=== PATIENT | female | born 1950 | race Caucasian/White ===

== ENCOUNTER 2017-06-08 13:28 | Emergency (ER) | payer MEDICARE, BC ==
[2017-06-08 13:45] VITALS: BP 126/66
[2017-06-08] MEDS ORDERED: Sodium Chloride 0.9% 10 ML Syringe FLUSH PRN (14:16)
[2017-06-08] MEDS ORDERED: Ondansetron 4 MG/2 ML SDV IVPUSH ONE (14:17)
[2017-06-08] MEDS ORDERED: Sodium Chloride 0.9% 1,000 ML IV ONE (14:17)
--- NOTE | 2017-06-08 14:34 | EDM.PDOC ---
ED HPI GENERAL MEDICAL PROBLEM - General Chief Complaint: Respiratory Problem Stated Complaint: fever/cough Time Seen by Provider: 06/08/17 13:40 Source of Information: Reports: Patient, RN, RN Notes Reviewed History Limitations: Reports: No Limitations - History of Present Illness INITIAL COMMENTS - FREE TEXT/NARRATIVE: Patient presents to the ED at [facility] with a 2 day history of a fever and non-productive cough. Patient states her fevers have been up to 103 orally. She has no appetite. She has been trying to stay well hydrated with good PO fluid intake. No close family members or close contacts with similar symptoms. Patient has not tried any OTC cold medications for her symptoms. Patient denies any eye or ear pathology. No sore throat. No sinus complaints. 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: Other (see below) Other Treatments BRUSH CLEARER SURVEYING: ibuprofen chest Pain Score (Numeric/FACES): 3 - Related Data Allergies Allergy/AdvReac Type Severity Reaction Status Date / Time acetaminophen [From Vicodin] Allergy Nausea Verified 06/08/17 13:44 ciprofloxacin HCl Allergy Nausea Verified 06/08/17 13:44 [From Cipro HC] hydrocodone bitartrate Allergy Nausea Verified 06/08/17 13:44 [From Vicodin] hydrocortisone Allergy Nausea Verified 06/08/17 13:44 [From Cipro HC] Home Meds: Home Meds Levothyroxine [Synthroid] 88 mcg PO DAILY 09/23/16 [History] Oseltamivir [Tamiflu] 75 mg PO BID 5 Days #10 cap 06/08/17 [Rx] Past Medical History Endocrine/Metabolic History: Reports: Diabetes, Type II, Hypothyroidism Social & Family History - Family History Family Medical History: Noncontributory - Tobacco Use Smoking Status *Q: Never Smoker - Recreational Drug Use Recreational Drug Use: No Drug Use in Last 12 Months: No - Living Situation & Occupation Living situation: Reports: Single Occupation: Employed ED ROS GENERAL - Review of Systems Review Of Systems: See Below Constitutional: Reports: Fever, Chills, Decreased Appetite. Denies: Weakness HEENT: Denies: Ear Pain, Sinus Problem, Throat Pain Respiratory: Reports: Pleuritic Chest Pain, Cough. Denies: Shortness of Breath , Wheezing, Sputum Cardiovascular: Denies: Chest Pain, Palpitations GI/Abdominal: Reports: Nausea. Denies: Abdominal Pain, Vomiting Skin: Reports: No Symptoms Neurological: Reports: Headache. Denies: Numbness, Paresthesia, Tingling ED EXAM, GENERAL - Physical Exam Exam: See Below Exam Limited By: No Limitations General Appearance: Alert, No Apparent Distress Eye Exam: Bilateral Eye: EOMI, Normal Inspection, PERRL Ears: Normal External Exam, Normal Canal, Normal TMs Ear Exam: Bilateral Ear: TM normal Nose: Normal Inspection, Normal Mucosa Throat/Mouth: Normal Inspection, Normal Oropharynx, No Airway Compromise Neck: Supple Respiratory/Chest: No Respiratory Distress, Decreased Breath Sounds, Rhonchi, Wheezing Cardiovascular: Normal Peripheral Pulses, Regular Rate, Rhythm GI/Abdominal: Normal Bowel Sounds, Soft, Non-Tender Neurological: Alert, Oriented Skin Exam: Warm, Dry, Intact, Normal Color, No Rash Course - Vital Signs Last Recorded V/S: Last Vital Signs Temp 36.7 C 06/08/17 13:44 Pulse 87 06/08/17 13:44 Resp 18 06/08/17 13:44 BP 126/66 06/08/17 13:44 Pulse Ox 92 L 06/08/17 13:44 - Orders/Labs/Meds Orders: Active Orders 24 hr Category Date Time Status Chest 2V [CR] Stat Exams 06/08/17 14:17 Taken [facility]IRUS IGM [REF] Stat Lab 06/08/17 14:37 Received Sodium Chloride 0.9% [Saline Flush] Med 06/08/17 14:16 Active 10 ml FLUSH ASDIRECTED PRN Peripheral IV Insertion Adult [OM.PC] Routine Oth 06/08/17 14:16 Ordered Medication Orders Sodium Chloride (Saline Flush) 10 ml FLUSH ASDIRECTED PRN PRN Reason: Keep Vein Open Labs: Laboratory Tests 06/08/17 06/08/17 06/08/17 Range/Units 14:37 14:37 14:37 WBC 4.0 (4.0-10.0) x10^3/uL RBC 4.61 (4.00-5.50) x10^6/uL Hgb 14.0 (12.0-16.0) g/dL Hct 41.0 (33.0-47.0) % MCV 88.9 (78.0-93.0) fL MCH 30.4 (26.0-32.0) pg MCHC 34.1 (32.0-36.0) g/dL RDW Coeff of Mariely 13.0 (10.0-15.0) % Plt Count 179 D (130-400) x10^3/uL Neut % (Auto) 54.5 (50.0-80.0) % Lymph % (Auto) 28.0 (25.0-50.0) % [place] % (Auto) 16.4 H (2.0-11.0) % Eos % (Auto) 0.3 (0.0-4.0) % Baso % (Auto) 0.8 (0.2-1.2) % Sodium 135 L (136-145) mmol/L Potassium 4.0 (3.5-5.1) mmol/L Chloride 101 (98-107) mmol/L Carbon Dioxide 28 (21-32) mmol/L BUN 11 (7-18) mg/dL Creatinine 1.0 (0.55-1.02) mg/dL Est Cr Clr Drug Dosing 44.77 mL/min Estimated GFR (MDRD) 55 Glucose 277 H (74-106) mg/dL Lactic Acid 1.1 (0.4-2.0) mmol/L Calcium 8.2 L (8.5-10.1) mg/dL C-Reactive Protein 3.4 H (<=0.9) mg/dL Meds: Medications Generic Name Dose Route Start Last Admin Trade Name Freq PRN Reason Stop Dose Admin Sodium Chloride 10 ml 06/08/17 14:16 Saline Flush FLUSH ASDIRECTED PRN Keep Vein Open Discontinued Medications Generic Name Dose Route Start Last Admin Trade Name Freq PRN Reason Stop Dose Admin Sodium Chloride 1,000 mls @ 999 mls/hr 06/08/17 14:17 06/08/17 14:38 Normal Saline IV 06/08/17 15:17 999 mls/hr ONETIME ONE Administration Ondansetron HCl 4 mg 06/08/17 14:17 06/08/17 14:38 Zofran IVPUSH 06/08/17 14:18 4 mg ONETIME ONE Administration Departure - Departure Time of Disposition: 15:29 Disposition: Home, Self-Care 01 Condition: Good Clinical Impression: Influenza A - Discharge Information Prescriptions: Oseltamivir [Tamiflu] 75 mg PO BID 5 Days #10 cap Instructions: Influenza, Adult, [id number] Referrals: Bia Wyatt PA-C [Primary Care Provider] - Forms: ED Department Discharge Additional Instructions: 1. Stay well hydrated and rest 2. Cover your cough 3. May alternate Tylenol/Advil as needed for pain/fevers 4. Take medications for the full coarse, even if you are feeling better 5. See your Primary as symptoms warrant - Problem List Review Problem List Initiated/Reviewed/Updated: Yes - My Orders Last 24 Hours: My Active Orders 06/08/17 14:16 Sodium Chloride 0.9% [Saline Flush] 10 ml FLUSH ASDIRECTED PRN Peripheral IV Insertion Adult [OM.PC] Routine 06/08/17 14:17 Chest 2V [CR] Stat 06/08/17 14:37 [facility]IRUS IGM [REF] Stat - Assessment/Plan Last 24 Hours: My Active Orders 06/08/17 14:16 Sodium Chloride 0.9% [Saline Flush] 10 ml FLUSH ASDIRECTED PRN Peripheral IV Insertion Adult [OM.PC] Routine 06/08/17 14:17 Chest 2V [CR] Stat 06/08/17 14:37 [facility]IRUS IGM [REF] Stat
== END 2017-06-08 15:45 | disposition home or self-care (01) ==
LOC: VM.ED 13:28
DX: J10.1 Influenza due to other identified influenza virus with other respiratory manifestations (principal); E11.9 Type 2 diabetes mellitus without complications; E03.9 Hypothyroidism, unspecified; Z79.899 Other long term (current) drug therapy; Z88.1 Allergy status to other antibiotic agents; Z88.6 Allergy status to analgesic agent; Z88.5 Allergy status to narcotic agent; Z88.8 Allergy status to other drugs, medicaments and biological substances
CPT/HCPCS: 71020; 80048; 83605; 85025; 86140; 86788; 87804; 96361; 96374; 99283; J2405; J7030

== ENCOUNTER 2017-12-31 08:24 | Emergency (ER) | payer MEDICARE, BC ==
[2017-12-31 08:43] VITALS: BP 124/77
--- NOTE | 2017-12-31 11:01 | EDM.PDOC ---
ED HPI GENERAL MEDICAL PROBLEM - General Chief Complaint: Genitourinary Problem Stated Complaint: POSSIBLE bladder INFECTION Time Seen by Provider: 12/31/17 08:45 Source of Information: Reports: Patient History Limitations: Reports: No Limitations - History of Present Illness INITIAL COMMENTS - FREE TEXT/NARRATIVE: Pt. presents to ER with complaints of hematuria and dysuria that started at approx. 0630 this AM. Pt. states that she is not experiencing any flank or low back pain. No fever or chills. Denies any weakness. Pt. states that her last UTI was 30 years ago. Onset: Today Onset Time: 06:30 Location: Reports: Generalized Quality: Reports: Burning Associated Symptoms: Denies: Diaphoresis, Fever/Chills, Malaise, Nausea/Vomiting , Weakness - Related Data Allergies Allergy/AdvReac Type Severity Reaction Status Date / Time acetaminophen [From Vicodin] Allergy Nausea Verified 06/08/17 13:44 ciprofloxacin HCl Allergy Nausea Verified 06/08/17 13:44 [From Cipro HC] hydrocodone bitartrate Allergy Nausea Verified 06/08/17 13:44 [From Vicodin] hydrocortisone Allergy Nausea Verified 06/08/17 13:44 [From Cipro HC] Home Meds: Home Meds Levothyroxine [Synthroid] 88 mcg PO DAILY 09/23/16 [History] Oseltamivir [Tamiflu] 75 mg PO BID 5 Days #10 cap 06/08/17 [Rx] Past Medical History Endocrine/Metabolic History: Reports: Diabetes, Type II, Hypothyroidism Oncologic (Cancer) History: Reports: Thyroid - Past Surgical History Female Surgical History: Reports: Hysterectomy Endocrine Surgical History: Reports: Thyroidectomy Social & Family History - Family History Family Medical History: Noncontributory - Tobacco Use Smoking Status *Q: Never Smoker - Recreational Drug Use Recreational Drug Use: No Drug Use in Last 12 Months: No - Living Situation & Occupation Living situation: Reports: Single Occupation: Employed ED ROS GENERAL - Review of Systems Review Of Systems: See Below Constitutional: Reports: No Symptoms HEENT: Reports: No Symptoms Respiratory: Reports: No Symptoms Cardiovascular: Reports: No Symptoms Endocrine: Reports: No Symptoms : Reports: Dysuria, Frequency Musculoskeletal: Reports: No Symptoms Skin: Reports: No Symptoms Neurological: Reports: No Symptoms Psychiatric: Reports: No Symptoms Hematologic/Lymphatic: Reports: No Symptoms Immunologic: Reports: No Symptoms ED EXAM, GENERAL - Physical Exam Exam: See Below Exam Limited By: No Limitations General Appearance: Alert, WD/WN, No Apparent Distress Respiratory/Chest: No Respiratory Distress, Lungs Clear, Normal Breath Sounds, No Accessory Muscle Use, Chest Non-Tender Cardiovascular: Normal Peripheral Pulses, Regular Rate, Rhythm, No Edema, No Gallop, No JVD, No Murmur, No Rub Peripheral Pulses: 4+: Radial (L), Radial (R) GI/Abdominal: Normal Bowel Sounds, Soft, Non-Tender, No Organomegaly, No Distention, No Abnormal Bruit, No Mass (Female) Exam: Deferred Rectal (Female) Exam: Deferred Back Exam: Normal Inspection, Full Range of Motion, NT Extremities: Normal Inspection, Normal Range of Motion, Non-Tender, Normal Capillary Refill, No Pedal Edema Neurological: Alert, Oriented, CN II-XII Intact, Normal Cognition, Normal Gait, Normal Reflexes, No Motor/Sensory Deficits Course - Vital Signs Last Recorded V/S: Last Vital Signs Temp 35.5 C 12/31/17 08:41 Pulse 72 12/31/17 08:41 Resp 16 12/31/17 08:41 BP 124/77 12/31/17 08:41 Pulse Ox 96 12/31/17 08:41 - Orders/Labs/Meds Orders: Active Orders 24 hr Category Date Time Status UA W/MICROSCOPIC [URIN] Stat Lab 12/31/17 09:27 Ordered Labs: Laboratory Tests 12/31/17 Range/Units 09:27 Urine Color Brown H (YELLOW) Urine Appearance Turbid H (CLEAR) Urine pH 5.5 (5.0-8.0) Ur Specific [place] 1.015 Urine Protein >=300 H (NEGATIVE) mg/dL Urine Glucose (UA) Negative (NEGATIVE) mg/dL Urine Ketones Trace H (NEGATIVE) mg/dL Urine Occult Blood Large H (NEGATIVE) Urine Nitrite Positive H (NEGATIVE) Urine Bilirubin Moderate H (NEGATIVE) Urine Urobilinogen 1.0 (0.2) EU/dL Ur Leukocyte Esterase Trace H (NEGATIVE) Urine RBC Packed (NOT SEEN) /HPF Urine WBC 5-10 H (NOT SEEN) /HPF Ur Squamous Epith Cells Few H (NEGATIVE) /HPF Amorphous Sediment Few Urine Bacteria Few H (NEGATIVE) /HPF Urine Mucus Few H (NEGATIVE) /LPF Departure - Departure Time of Disposition: 10:05 Disposition: Home, Self-Care 01 Condition: Good Clinical Impression: UTI, Urinary tract infectious disease - Discharge Information Instructions: Urinary Tract Infection, Adult Referrals: Bia Wyatt PA-C [Primary Care Provider] - Forms: ED Department Discharge Additional Instructions: Bactrim DS twice daily for 5 days Drink plenty of fluids Follow-up in clinic in 7-10 days Return to ER if lightheadedness, weakness, or abdominal pain - My Orders Last 24 Hours: My Active Orders 12/31/17 09:27 UA W/MICROSCOPIC [URIN] Stat - Assessment/Plan Last 24 Hours: My Active Orders 12/31/17 09:27 UA W/MICROSCOPIC [URIN] Stat
== END 2017-12-31 10:05 | disposition home or self-care (01) ==
LOC: VM.ED 08:24
DX: N39.0 Urinary tract infection, site not specified (principal); E03.9 Hypothyroidism, unspecified; E11.9 Type 2 diabetes mellitus without complications; Z88.6 Allergy status to analgesic agent; Z88.1 Allergy status to other antibiotic agents; Z88.5 Allergy status to narcotic agent; Z79.899 Other long term (current) drug therapy
CPT/HCPCS: 81001; 99283

== ENCOUNTER 2018-03-03 19:28 | Emergency (ER) | payer MEDICARE, BC ==
--- NOTE | 2018-03-03 20:22 | EDM.PDOC ---
ED HPI GENERAL MEDICAL PROBLEM - General Chief Complaint: Eye Problems Stated Complaint: left eye problem Time Seen by Provider: 03/03/18 20:17 Source of Information: Reports: Patient History Limitations: Reports: No Limitations - History of Present Illness INITIAL COMMENTS - FREE TEXT/NARRATIVE: Patient complains of visual changes in the left eye that started at 7 pm today. No complaints of right eye difficulty. She describes it as seeing floaters and a frosting of her vision that is intermittent. She also states that her left pupil does not react to light. She tells me no one has been able to determine why this is but Singh's Palsy has been mentioned with no definite diagnosis. She denies pain, headache, nausea, vomiting. No chest pain, SOB, no abdominal pain, no neck pain. She has a history of thyroid cancer. She is diabetic and treats with a natural supplement glucokine. She has not been to see her primary opthalmologist in several years. Onset: Today, Sudden Duration: Intermittent Severity: Mild Associated Symptoms: Reports: No Other Symptoms - Related Data Allergies Allergy/AdvReac Type Severity Reaction Status Date / Time acetaminophen [From Vicodin] Allergy Nausea Verified 03/03/18 20:12 ciprofloxacin HCl Allergy Nausea Verified 03/03/18 20:12 [From Cipro HC] hydrocodone bitartrate Allergy Nausea Verified 03/03/18 20:12 [From Vicodin] hydrocortisone Allergy Nausea Verified 03/03/18 20:12 [From Cipro HC] Home Meds: Home Meds Levothyroxine [Synthroid] 88 mcg PO DAILY 09/23/16 [History] Past Medical History Endocrine/Metabolic History: Reports: Diabetes, Type II, Hypothyroidism Oncologic (Cancer) History: Reports: Thyroid - Past Surgical History Female Surgical History: Reports: Hysterectomy Endocrine Surgical History: Reports: Thyroidectomy Social & Family History - Family History Family Medical History: Noncontributory - Tobacco Use Smoking Status *Q: Never Smoker - Living Situation & Occupation Living situation: Reports: Single Occupation: Employed ED ROS GENERAL - Review of Systems Review Of Systems: See Below Constitutional: Reports: No Symptoms HEENT: Reports: Other (vision changes with floaters, and frosted vision) Respiratory: Reports: No Symptoms Cardiovascular: Reports: No Symptoms Endocrine: Reports: No Symptoms GI/Abdominal: Reports: No Symptoms : Reports: No Symptoms Musculoskeletal: Reports: No Symptoms Skin: Reports: No Symptoms Neurological: Reports: No Symptoms Psychiatric: Reports: No Symptoms Hematologic/Lymphatic: Reports: No Symptoms Immunologic: Reports: No Symptoms ED EXAM GENERAL W FULL EYE - Physical Exam Exam: See Below Exam Limited By: No Limitations General Appearance: Alert, WD/WN, No Apparent Distress Eye Exam: Bilateral Eye: EOMI, Normal Inspection, PERRL Visual Acuity (R) 20/: 25 Visual Acuity (L) 20/: 25 With Correction: No Eyelids: Bilateral: Normal Appearance Conjunctiva & Sclera: Bilateral: Normal Appearance Cornea Exam: Bilateral: Normal Appearance Extraocular Movements: Bilateral: Intact Pupillary Size: Left: 3 mm Pupillary Reaction: Right: Brisk, Left: Absent (historical) Anterior Chamber: Left: Normal Appearance Posterior Chamber: Left: Normal Funduscopic Ears: Normal External Exam, Normal Canal, Hearing Grossly Normal, Normal TMs Throat/Mouth: Normal Inspection, Normal Lips, Normal Teeth, Normal Gums, Normal Oropharynx, Normal Voice, No Airway Compromise Head: Atraumatic, Normocephalic Neck: Normal Inspection, Supple, Non-Tender, Full Range of Motion Respiratory/Chest: No Respiratory Distress, Lungs Clear, Normal Breath Sounds, No Accessory Muscle Use, Chest Non-Tender Cardiovascular: Normal Peripheral Pulses, Regular Rate, Rhythm, No Edema, No Gallop, No JVD, No Murmur, No Rub Neurological: Alert, Oriented, CN II-XII Intact, Normal Cognition, Normal Gait, Normal Reflexes, No Motor/Sensory Deficits Psychiatric: Normal Affect, Normal Mood Skin Exam: Warm, Dry, Intact, Normal Color, No Rash Course - Orders/Labs/Meds Orders: Active Orders 24 hr Category Date Time Status Accu Check [Blood Glucose Check, Bedside] [RC] ONETIME Care 03/03/18 20:16 Active Labs: Laboratory Tests 03/03/18 Range/Units 20:19 POC Glucose 225 H (74-106) mg/dL - Re-Assessments/Exams Free Text/Narrative Re-Assessment/Exam: 03/03/18 20:57 Posterior eye exam negative for detached retina, hemorrhage, no papillary edema. Departure - Departure Time of Disposition: 20:38 Disposition: Home, Self-Care 01 Condition: Good Clinical Impression: Vitreous floaters of left eye - Discharge Information Instructions: Eye Floaters Forms: ED Department Discharge Additional Instructions: You need to follow up with your eye doctor this week. You also need to follow up with your primary doctor to get your blood sugar regulated as this can negatively effect your vision. If you have any questions or concerns, please call. - Problem List & Annotations (1) Vitreous floaters of left eye SNOMED Code(s): 25677479 Code(s): H43.392 - OTHER VITREOUS OPACITIES, LEFT EYE Status: Acute Priority: Low Current Visit: Yes - Problem List Review Problem List Initiated/Reviewed/Updated: Yes - My Orders Last 24 Hours: My Active Orders 03/03/18 20:16 Accu Check [Blood Glucose Check, Bedside] [RC] ONETIME - Assessment/Plan Last 24 Hours: My Active Orders 03/03/18 20:16 Accu Check [Blood Glucose Check, Bedside] [RC] ONETIME Assessment:: vitreous floaters of the left eye Plan: You need to follow up with your eye doctor this week. You also need to follow up with your primary doctor to get your blood sugar regulated as this can negatively effect your vision. If you have any questions or concerns, please call.
== END 2018-03-03 20:44 | disposition home or self-care (01) ==
LOC: VM.ED 19:28
DX: H43.392 Other vitreous opacities, left eye (principal); E11.9 Type 2 diabetes mellitus without complications; E03.9 Hypothyroidism, unspecified; Z88.1 Allergy status to other antibiotic agents; Z88.6 Allergy status to analgesic agent; Z88.5 Allergy status to narcotic agent; Z79.899 Other long term (current) drug therapy
CPT/HCPCS: 82962; 99282-GF; 99283

== ENCOUNTER 2019-09-06 17:27 | Emergency (ER) | payer MEDICARE, BC ==
[2019-09-06] MEDS ORDERED: Ketorolac 30 MG/ML SDV IM ONE (17:44)
[2019-09-06 17:47] VITALS: BP 146/69; PULSE 71
[2019-09-06 18:19] LABS: CHLORIDE,CL 101 mmol/L (98-107); SODIUM,NA 139 mmol/L (136-145)
[2019-09-06 18:21] LABS: ANION GAP 13.9 mmol/L (10-20)
[2019-09-06] MEDS ORDERED: oxyCODONE 5 MG Tab ONE (18:59)
--- NOTE | 2019-09-07 03:11 | EDM.PDOC ---
ED HPI GENERAL MEDICAL PROBLEM - General Chief Complaint: Gastrointestinal Problem Time Seen by Provider: 09/06/19 17:30 Source of Information: Reports: Patient History Limitations: Reports: No Limitations - History of Present Illness INITIAL COMMENTS - FREE TEXT/NARRATIVE: Pt. presents to ER with complaints of epigastric pain. She has been experiencing this for several days. She states that the discomfort is worse postprandially. Denies any fever or chills. No jaundice. No light colored stools or dark urine. Pt. was seen in ER for the same today. She is concerned because her ultrasound isn't until Tuesday, and she states that she needs oral pain medication. Onset: Today Onset Date: 09/07/19 Location: Reports: Abdomen Quality: Reports: Sharp Associated Symptoms: Denies: Diaphoresis, Nausea/Vomiting, Shortness of Breath, Weakness Epigastric Pain Score (Numeric/FACES): 4 - Related Data Allergies Allergy/AdvReac Type Severity Reaction Status Date / Time acetaminophen [From Vicodin] AdvReac Nausea Verified 09/06/19 17:42 ciprofloxacin HCl AdvReac Nausea Verified 09/06/19 17:42 [From Cipro HC] hydrocodone bitartrate AdvReac Nausea Verified 09/06/19 17:42 [From Vicodin] hydrocortisone AdvReac Nausea Verified 09/06/19 17:42 [From Cipro HC] Home Meds: Home Meds Levothyroxine [Synthroid] 88 mcg PO DAILY 09/23/16 [History] oxyCODONE 5 mg PO QID #5 cup 09/06/19 [Rx] Past Medical History Endocrine/Metabolic History: Reports: Diabetes, Type II, Hypothyroidism Oncologic (Cancer) History: Reports: Thyroid - Past Surgical History Female Surgical History: Reports: Hysterectomy Endocrine Surgical History: Reports: Thyroidectomy Social & Family History - Family History Family Medical History: Noncontributory - Tobacco Use Smoking Status *Q: Never Smoker - Recreational Drug Use Recreational Drug Use: No - Living Situation & Occupation Living situation: Reports: Single Occupation: Employed ED ROS GENERAL - Review of Systems Review Of Systems: See Below Constitutional: Reports: No Symptoms HEENT: Reports: No Symptoms Respiratory: Reports: No Symptoms Cardiovascular: Reports: No Symptoms Endocrine: Reports: No Symptoms GI/Abdominal: Reports: Abdominal Pain : Reports: No Symptoms Musculoskeletal: Reports: No Symptoms Skin: Reports: No Symptoms Neurological: Reports: No Symptoms Psychiatric: Reports: No Symptoms Hematologic/Lymphatic: Reports: No Symptoms Immunologic: Reports: No Symptoms ED EXAM, GENERAL - Physical Exam Exam: See Below Exam Limited By: No Limitations General Appearance: Alert, WD/WN, No Apparent Distress GI/Abdominal: Normal Bowel Sounds, Soft, Non-Tender, No Organomegaly, No Distention, No Mass Course - Vital Signs Last Recorded V/S: Last Vital Signs Temp 36.1 C 09/06/19 17:30 Pulse 71 09/06/19 17:30 Resp 16 09/06/19 17:30 BP 146/69 H 09/06/19 17:30 Pulse Ox 96 09/06/19 17:30 - Orders/Labs/Meds Labs: Laboratory Tests 09/06/19 09/06/19 09/06/19 Range/Units 17:51 17:51 17:51 WBC 7.8 (4.0-10.0) x10^3/uL RBC 4.77 (4.00-5.50) x10^6/uL Hgb 14.1 (12.0-16.0) g/dL Hct 42.5 (33.0-47.0) % MCV 89.1 (78.0-93.0) fL MCH 29.6 (26.0-32.0) pg MCHC 33.2 (32.0-36.0) g/dL RDW Coeff of Mariely 12.7 (10.0-15.0) % Plt Count 235 (130-400) x10^3/uL Neut % (Auto) 58.6 (50.0-80.0) % Lymph % (Auto) 30.4 (25.0-50.0) % [place] % (Auto) 9.2 (2.0-11.0) % Eos % (Auto) 1.2 (0.0-4.0) % Baso % (Auto) 0.6 (0.2-1.2) % PT 9.7 L (10.0-12.8) SEC INR 0.9 L (2.0-3.5) Sodium 139 (136-145) mmol/L Potassium 3.9 (3.5-5.1) mmol/L Chloride 101 (98-107) mmol/L Carbon Dioxide 28 (21-32) mmol/L Anion Gap 13.9 (10-20) mmol/L BUN 9 (7-18) mg/dL Creatinine 0.9 (0.55-1.02) mg/dL Est Cr Clr Drug Dosing 47.32 mL/min Estimated GFR (MDRD) > 60 Glucose 324 H (74-106) mg/dL Calcium 9.0 (8.5-10.1) mg/dL Corrected Calcium 9.64 (8.5-10.1) mg/dL Total Bilirubin 0.4 (0.2-1.0) mg/dL AST 21 (15-37) U/L ALT 44 (14-59) U/L Alkaline Phosphatase 130 H (46-116) U/L C-Reactive Protein 0.6 (<=0.9) mg/dL Total Protein 6.8 (6.4-8.2) g/dL Albumin 3.2 L (3.4-5.0) g/dL Globulin 3.6 Albumin/Globulin Ratio 0.89 Meds: Medications Discontinued Medications Generic Name Dose Route Start Last Admin Trade Name Merari PRN Reason Stop Dose Admin Ketorolac Tromethamine 30 mg 09/06/19 17:44 09/06/19 18:48 Toradol IM 09/06/19 17:45 Not Given ONETIME ONE Metformin HCl 850 mg 09/07/19 18:36 09/06/19 19:11 Glucophage PO 09/07/19 18:37 850 mg ONETIME ONE Administration Oxycodone HCl Confirm 09/06/19 18:59 09/06/19 19:16 Oxycodone Administered 09/06/19 19:00 Not Given Dose 25 mg .ROUTE .STK-MED ONE Departure - Departure Time of Disposition: 19:22 Disposition: Home, Self-Care 01 Clinical Impression: Colicky RUQ abdominal pain, Type II diabetes mellitus - Discharge Information Prescriptions: oxyCODONE 5 mg PO QID #5 cup Instructions: Type 2 Diabetes Mellitus, Diagnosis, Adult, Oxycodone tablets or capsules, Metformin tablets, Fat and Cholesterol Restricted Eating Plan, Easy-to -Read Referrals: Bia Wyatt PA-C [Primary Care Provider] - Forms: ED Department Discharge Additional Instructions: Oxycodone IR 5 mg 1 tab every 6 hours as needed for pain Metformin 850mg once daily for diabetes Check your blood sugar daily and bring the readings in to clinic for your next appointment [facility] will be in contact with your tomorrow to schedule an ultrasound on Tuesday Meats, especially fried meats, butter, cheese, peanut butter, ice creams and other foods containing a lot of fat will cause the pain to get worse. I have enclosed a handout on foods to avoid. Follow-up in clinic after the ultrasound, as you will likely need a referral to see surgery. Sepsis Event Note - Evaluation Sepsis Screening Result: No Definite Risk - Focused Exam Vital Signs: Vital Signs Temp Pulse Resp BP Pulse Ox 09/06/19 17:30 36.1 C 71 16 146/69 H 96 Date Exam was Performed: 09/07/19 Time Exam was Performed: 03:13 - Assessment/Plan Plan: Oxycodone IR 5 mg 1 tab every 6 hours as needed for pain Metformin 850mg once daily for diabetes Check your blood sugar daily and bring the readings in to clinic for your next appointment [facility] will be in contact with your tomorrow to schedule an ultrasound on Tuesday Meats, especially fried meats, butter, cheese, peanut butter, ice creams and other foods containing a lot of fat will cause the pain to get worse. I have enclosed a handout on foods to avoid. Follow-up in clinic after the ultrasound, as you will likely need a referral to see surgery.
== END 2019-09-06 19:20 | disposition home or self-care (01) ==
LOC: VM.ED 17:27
DX: R10.11 Right upper quadrant pain (principal); E11.9 Type 2 diabetes mellitus without complications; E03.9 Hypothyroidism, unspecified; Z88.6 Allergy status to analgesic agent; Z88.1 Allergy status to other antibiotic agents; Z88.5 Allergy status to narcotic agent; Z88.8 Allergy status to other drugs, medicaments and biological substances; Z79.890 Hormone replacement therapy
CPT/HCPCS: 36415; 80053; 85025; 85610; 86140; 96372; 99284; A9270

== ENCOUNTER 2022-07-03 09:46 | Emergency (ER) | payer MEDICARE, BC ==
[2022-07-03 10:37] VITALS: BP 142/81; PULSE 88
[2022-07-03 11:06] LABS: CORONAVIRUS COVID-19 NAA POSITIVE (NEGATIVE); RESPIRATORY SYNCYTIAL VIR NAA NEGATIVE (NEGATIVE)
== END 2022-07-03 11:28 | disposition home or self-care (01) ==
LOC: VM.ED 09:46
DX: U07.1 COVID-19 (principal); E11.9 Type 2 diabetes mellitus without complications; E03.9 Hypothyroidism, unspecified; Z88.1 Allergy status to other antibiotic agents; Z88.5 Allergy status to narcotic agent; Z88.8 Allergy status to other drugs, medicaments and biological substances; Z79.899 Other long term (current) drug therapy
CPT/HCPCS: 0241U; 87651-QW; 99283; 99284

== ENCOUNTER 2025-03-17 08:55 | Emergency (ER) | payer MEDICARE, BC ==
[2025-03-17] MEDS: Take Home: Acetaminophen/Codeine 300 MG/30 MG, 5 Tab Pack PO ONE (09:14)
[2025-03-17] MEDS: Take Home: Amoxicillin/Clavulanate K 875-125 MG Tab, 2 Tab Pack PO ONE (09:14)
[2025-03-17 09:36] VITALS: BP 182/88; PULSE 80
== END 2025-03-17 09:16 | disposition home or self-care (01) ==
LOC: SUPCPDRO 08:55 → VM.ED 08:55
DX: K04.7 Periapical abscess without sinus (principal); E11.9 Type 2 diabetes mellitus without complications; E03.9 Hypothyroidism, unspecified; E66.9 Obesity, unspecified; Z86.16 Personal history of COVID-19; Z90.710 Acquired absence of both cervix and uterus; Z79.890 Hormone replacement therapy; Z79.899 Other long term (current) drug therapy; Z88.6 Allergy status to analgesic agent; Z88.1 Allergy status to other antibiotic agents; Z88.8 Allergy status to other drugs, medicaments and biological substances; Z68.30 Body mass index [BMI] 30.0-30.9, adult
CPT/HCPCS: 99282; 99283; A9270-GY